=== PATIENT | female | born 1995 | race Caucasian/White ===

== ENCOUNTER 2016-12-25 23:02 | Emergency (ER) | payer OTHER ==
[2016-12-25 23:25] LABS: #Eosinphils 0.1 thou/uL (0.0-0.7); #Lymphocytes 1.3 thou/uL (1.20-3.40); #Monocytes 0.6 thou/uL (0.11-0.59); #Neutrophils 6.2 thou/uL (1.40-6.50); %Basophils 0.6 % (0.0-1.0); %Eosinophils 0.8 % (0.0-10.0); %Lymphocytes 15.8 % (28.0-48.0); %Monocytes 7.3 % (0.0-4.0); Hematocrit 41.1 % (36.0-47.0); Mean Platelet Volume 7.7 fL (7.4-10.4); Red Blood Cell (RBC) Count 4.73 mill/uL (4.00-5.20); White Blood Cell (WBC) Count 8.2 thou/uL (4.8-10.8)
[2016-12-25 23:41] LABS: ALT (SGPT) 101 U/L (8-55); AST (SGOT) 129 U/L (5-34); Alkaline Phosphatase 59 U/L (40-150); Anion Gap 11 mmol/L (10-20); BUN (Urea Nitrogen) 12 mg/dL (7.0-18.7); Bilirubin, Total 1.1 mg/dL (0.2-1.2); Calc. Creatinine Clearance 0 mL/min (70-130); Calcium 9.1 mg/dL (7.8-10.44); Carbon Dioxide 26 mmol/L (22-29); Chloride 105 mmol/L (98-107); Estimated GFR-MDRD 89; Globulin 2.7 g/dL (2.4-3.5); Protein, Total 6.5 g/dL (6.0-8.3)
[2016-12-25 23:46] LABS: Troponin I Less than 0.010 ng/mL (< 0.028)
--- NOTE | 2016-12-25 23:47 | RAD ---
PORTABLE CHEST: 12/25/16 HISTORY: Chest pain and shortness of breath. Heart size and mediastinum are within normal limits. The lungs are clear of infiltrates. No bony fin dings. IMPRESSION: No active intrathoracic disease. POS: [facility]
[2016-12-26] MEDS ORDERED: Acetaminophen 325 MG TAB ONE (01:57)
== END 2016-12-26 02:58 | disposition home or self-care (01) ==
LOC: ERS 23:02
DX: R11.2 Nausea with vomiting, unspecified (principal); M54.5 Low back pain; M54.6 Pain in thoracic spine
CPT/HCPCS: 36415; 71010; 80053; 82553; 83690; 84484; 85025; 85379; 93005

== ENCOUNTER 2016-12-27 01:03 | Observation (INO) | payer OTHER ==
[2016-12-27 02:46] LABS: #Eosinphils 0.1 thou/uL (0.0-0.7); #Lymphocytes 1.4 thou/uL (1.20-3.40); #Monocytes 0.5 thou/uL (0.11-0.59); #Neutrophils 4.1 thou/uL (1.40-6.50); %Basophils 0.4 % (0.0-1.0); %Eosinophils 1.4 % (0.0-10.0); %Lymphocytes 22.8 % (28.0-48.0); %Monocytes 8.7 % (0.0-4.0); Hematocrit 41.2 % (36.0-47.0); Mean Platelet Volume 7.6 fL (7.4-10.4); Red Blood Cell (RBC) Count 4.71 mill/uL (4.00-5.20); White Blood Cell (WBC) Count 6.2 thou/uL (4.8-10.8)
[2016-12-27 03:05] LABS: ALT (SGPT) 293 U/L (8-55); AST (SGOT) 261 U/L (5-34); Alkaline Phosphatase 94 U/L (40-150); Anion Gap 11 mmol/L (10-20); BUN (Urea Nitrogen) 11 mg/dL (7.0-18.7); Bilirubin, Total 2.2 mg/dL (0.2-1.2); Calc. Creatinine Clearance 0 mL/min (70-130); Calcium 9.5 mg/dL (7.8-10.44); Carbon Dioxide 26 mmol/L (22-29); Chloride 108 mmol/L (98-107); Estimated GFR-MDRD Greater than 90; Globulin 3.1 g/dL (2.4-3.5); Protein, Total 7.1 g/dL (6.0-8.3)
[2016-12-27 05:56] VITALS: BMI 29.0
[2016-12-27] MEDS ORDERED: Ondansetron HCl/PF 4 MG/2 ML Vial IVP PRN (06:09)
[2016-12-27] MEDS ORDERED: Ondansetron ODT 4 MG TAB SL PRN ×2 (06:09→18:31)
[2016-12-27] MEDS ORDERED: Morphine 2 MG/ML SYRINGE SLOW IVP PRN ×2 (06:09→18:31)
[2016-12-27] MEDS: Lactated Ringer's 1,000 ML IV SCH ×3 (07:45→18:40)
[2016-12-27 08:44] LABS: #Basophils 0.1 thou/uL (0.0-0.2); #Eosinphils 0.1 thou/uL (0.0-0.7); #Monocytes 0.5 thou/uL (0.11-0.59); %Eosinophils 1.2 % (0.0-10.0); %Monocytes 9.7 % (0.0-4.0); Hematocrit 42.7 % (36.0-47.0); Mean Platelet Volume 8.1 fL (7.4-10.4); Red Blood Cell (RBC) Count 4.86 mill/uL (4.00-5.20); White Blood Cell (WBC) Count 5.6 thou/uL (4.8-10.8)
[2016-12-27 08:57] LABS: ALT (SGPT) 358 U/L (8-55); AST (SGOT) 368 U/L (5-34); Alkaline Phosphatase 109 U/L (40-150); Anion Gap 14 mmol/L (10-20); BUN (Urea Nitrogen) 9 mg/dL (7.0-18.7); Bilirubin, Total 2.4 mg/dL (0.2-1.2); Calc. Creatinine Clearance 162 mL/min (70-130); Calcium 9.3 mg/dL (7.8-10.44); Carbon Dioxide 25 mmol/L (22-29); Chloride 104 mmol/L (98-107); Estimated GFR-MDRD Greater than 90; Globulin 3.3 g/dL (2.4-3.5); Lipase 24 U/L (8-78); Protein, Total 7.3 g/dL (6.0-8.3)
[2016-12-27] MEDS ORDERED: CEFAZOLIN/Water 2 GM/20 ML SYRINGE ONE (09:01)
--- NOTE | 2016-12-27 09:25 | ULT ---
PRELIMINARY REPORT/[facility]/EMERGENCY AFTER HOURS PROCEDURE: EXAM: US Abdomen Limited, Right Upper Quadrant EXAM DATE/TIME: Exam ordered 12/27/2016 2:55 AM CLINICAL HISTORY: 21 years old, female; Pain; Other: Ruq TECHNIQUE: Real-time ultrasound of the right upper quadrant with image documentation. COMPARISON: No relevant prior studies available. FINDINGS: Liver: Unremarkable. No mass. No intrahepatic bile duct dilation. Gallbladder: Cholelithiasis. Gallbladder is distended. Gallbladder wall is at upper limits of normal in thickness at 3 mm. Sonographic Rojas sign reported as "slightly positive." Common bile duct: Common bile duct is dilated at 1 cm in caliber. No stones. Pancreas: Unremarkable as visualized. Right kidney: Unremarkable. No stones. No solid mass. No hydronephrosis. IMPRESSION: 1. Cholelithiasis. Gallbladder is distended with wall thickness at the upper limits of normal at 3 m m, and "slightly positive" sonographic Rojas's are suspicious for but not definitely diagnostic of acute cholecystitis. 2. Common bile duct is dilated at 1 cm. Distal CBD obstruction not excluded. Consider CT abdomen/pel vis with intravenous contrast. Thank you for allowing us to participate in the care of your patient. Dictated and Authenticated by: Jordan Marvin MD 12/27/2016 3:30 AM Central Time ([place] \\T\\ Eric) FINAL REPORT EMERGENT AFTER HOURS STUDY ULTRASOUND ABDOMEN LIMITED: (RIGHT UPPER QUADRANT) HISTORY: A 21-year-old female with right upper quadrant abdominal pain. FINDINGS: Gallbladder: Wall thickness at upper limits of normal, 3 mm. Several tiny mobile gallstones, a few millimeters in size each. Mildly distended lumen. Common duct: Dilated to 10 mm. Liver: Diffusely heterogeneous echotexture, suggestive of possible hepatocellular disease. Pancreas: Nonspecific sonographic appearance. Right kidney: No hydronephrosis. Parenchyma thin, atypical for age 21 years. No major disagreement with preliminary report by [facility]. IMPRESSION: 1. Dilated common duct to 10 mm caliber: Evidence for common bile duct obstruction, such as that d ue to occult choledocholithiasis. 2. Cholelithiasis. 3. Heterogeneous hepatic echotexture, atypical for stated age of 21 years. This is suggestive of p ossible hepatocellular disease. Recommend correlation with liver enzymes. 4. The right renal parenchyma appears thin, which is also atypical for age [age] years old. Recommend correlation with urinalysis and glomerular filtration rate. ITALIA Dubon POS: [facility]
[2016-12-27] MEDS ORDERED: Lidocaine 2% w/Epinephrine 1:200K 20 ML VIAL ONE (10:22)
[2016-12-27] MEDS ORDERED: Bupivacaine PF 0.5% 30 ML VIAL ONE (10:22)
[2016-12-27] MEDS ORDERED: Iothalamate Meglumine 60% 50 ML VIAL FS ONE ×2 (10:22→13:00)
[2016-12-27] MEDS ORDERED: Fentanyl 250 MCG/5 ML VIAL ONE (12:21)
[2016-12-27] MEDS ORDERED: Midazolam HCl 2 mg/2 ml Vial ONE (12:35)
[2016-12-27] MEDS ORDERED: Propofol 200 MG/20 ML VIAL ONE (13:24)
[2016-12-27] MEDS ORDERED: Lidocaine 1% PF 5 ML VIAL ONE (13:24)
--- NOTE | 2016-12-27 13:39 | CON ---
DATE OF CONSULTATION: 12/27/2016 GASTROENTEROLOGY CONSULTATION NOTE CHIEF COMPLAINT: Abdominal pain. HISTORY OF PRESENT ILLNESS: Ms. Osorio is a 21-year-old woman who delivered a baby 4 weeks ago who presented to the emergency room with abdominal pain starting the day before yesterday. She has rig ht upper quadrant, sharp to aching pain that radiates through to her right back associated with naus ea and vomiting. She came to the emergency room on 12/26/2016 and her pain resolved and she was dis charged home. She had more back pain at that time with nausea and vomiting. She came back yesterda y to the emergency room and an ultrasound was performed which showed cholelithiasis. Her common oh e duct was noted to be dilated to 1 cm. She was also noted to have elevated liver tests. She was a dmitted to Dr. Sebastian and GI was consulted to evaluate for choledocholithiasis. Her pain actually resolved around 1:30 this morning; however, her liver tests increased. She has had no fever or chil ls. Her white count has been normal. PAST MEDICAL HISTORY: Otherwise, negative. She delivered a healthy baby 4 weeks ago. PAST SURGICAL HISTORY: Negative. FAMILY HISTORY: Negative for GI malignancy. Her grandmother had breast cancer. SOCIAL HISTORY: No alcohol or drugs. She smokes 1-2 cigarettes a day. ALLERGIES: No known drug allergies. MEDICATIONS AT HOME: None. REVIEW OF SYSTEMS: Negative x10 systems review except as stated in the history of present illness. PHYSICAL EXAMINATION: VITAL SIGNS: Temperature 98.8, pulse 88, and blood pressure 120/84. GENERAL: She is in no acute distress, alert and oriented x3. HEENT: Eyes have no scleral icterus. Oropharynx is clear without lesions. NECK: No cervical or supraclavicular lymphadenopathy. LUNGS: Clear to auscultation bilaterally. HEART: Regular rate and rhythm. ABDOMEN: Has mild tenderness in the right upper quadrant without guarding. EXTREMITIES: No lower extremity edema. NEUROLOGIC: Cranial nerves are grossly intact. LABORATORY DATA: White blood cell count 5.6, hemoglobin 13.2, and platelets 244. Creatinine 0.79, bilirubin is 2.4, AST 368, ALT 358, alkaline phosphatase 109, albumin 4.0, and lipase 24. IMPRESSION: Choledocholithiasis. Her liver tests have increased; however, pain is improved. Her b ile duct is dilated and she has stones in the gallbladder by ultrasound. Risks and benefits of endo scopic retrograde cholangiopancreatography were discussed with the patient in detail, this includes post-endoscopic retrograde cholangiopancreatography and bleeding. PLAN: ERCP today. Thus will follow laparoscopic cholecystectomy.
[2016-12-27] MEDS ORDERED: Indomethacin 50 MG SUPP ONE (15:45)
[2016-12-27] MEDS ORDERED: Ondansetron HCl/PF 4 MG/2 ML Vial ONE (16:36)
[2016-12-27] MEDS ORDERED: Glycopyrrolate 0.2 MG/ML 5 ML SYRINGE ONE (16:36)
--- NOTE | 2016-12-27 17:07 | RAD ---
CHOLANGIOGRAM IN SURGERY: History: Cholelithiasis. FINDINGS/IMPRESSION: Two spot fluoroscopic intraoperative images during a cholangiogram demonstrate opacification of the common duct, cystic duct, and branches without filling defects. Contrast was not seen in the distal common bile duct, pancreatic duct, or second portion of the duodenum. POS: [facility]
[2016-12-27] MEDS ORDERED: Promethazine HCl 25 MG/ML VIAL SLOW IVP PRN (17:17)
[2016-12-27] MEDS ORDERED: Meperidine HCl/PF 25 MG/ML VIAL SLOW IVP PRN (17:17)
[2016-12-27] MEDS ORDERED: Morphine Sulfate 2 MG/ML SYRINGE SLOW IVP PRN (17:17)
[2016-12-27] MEDS ORDERED: HYDROmorphone 2 MG/ML VIAL SLOW IVP PRN (17:17)
[2016-12-27] MEDS ORDERED: Fentanyl 100 MCG/2 ML VIAL ONE (17:18)
[2016-12-27] MEDS ORDERED: Promethazine HCl 25 MG/ML VIAL ONE (17:22)
[2016-12-27] MEDS ORDERED: HYDROcodone/Acetaminophen 7.5/325 mg Tablet PO PRN (18:33)
[2016-12-27] MEDS ORDERED: CEFAZOLIN/Water 2 GM/20 ML SYRINGE SLOW IVP SCH (18:45)
--- NOTE | 2016-12-27 23:09 | OP ---
DATE OF PROCEDURE: 12/27/2016 PROCEDURE: Endoscopic retrograde cholangiopancreatography with sphincterotomy. PREOPERATIVE DIAGNOSIS: Choledocholithiasis. OPERATIVE NOTE: Informed consent was obtained from the patient. She was sedated with general anest hesia. She underwent laparoscopic cholecystectomy. Intraoperative cholangiogram showed a dilated b ile duct that did not drain. This procedure was performed in the same anesthesia as the cholecystec jere. The patient was placed in the prone position. The side-viewing endoscope was advanced easily to the second portion of the duodenum. The ampulla was identified and there was a small periampull nick diverticulum present. The common bile duct was cannulated easily with a sphincterotome loaded w ith a jag wire. Cholangiogram was performed, which showed a dilated common bile duct and mildly dil ated extrahepatic ducts. No focal filling defect was identified. A large sphincterotomy was perfor med. A 15 mm balloon was then used to sweep the bile duct. The balloon had to be deflated very sli ghtly between 12 and 15 mm to pass through the sphincterotomy; however, it did pass through easily. The duct was swept clear and occlusion cholangiogram confirmed the duct to be clear. No stone was identified. IMPRESSION: 1. Dilated common bile duct and extrahepatic ducts. No focal filling defect was seen. 2. Large sphincterotomy performed. Balloon sweep of the bile duct was done and occlusion cholangio gram confirmed the duct to be clear. Air was suctioned from the stomach and the patient tolerated t he procedure well without immediate complications. Indomethacin 100 mg was given rectally immediate ly prior to the ERCP. RECOMMENDATIONS: Follow trend of the liver function test tomorrow. If she is doing well without co mplication, she should be able to discharge home tomorrow.
[2016-12-27] MEDS: Ondansetron HCl/PF 4 MG/2 ML Vial IVP PRN (23:42)
[2016-12-27] MEDS: HYDROcodone/Acetaminophen 7.5/325 mg Tablet PO PRN (23:42)
[2016-12-28] MEDS: Lactated Ringer's 1,000 ML IV SCH ×2 (04:24→15:29)
[2016-12-28 06:45] LABS: #Eosinphils 0.1 thou/uL (0.0-0.7); #Monocytes 0.7 thou/uL (0.11-0.59); #Neutrophils 7.8 thou/uL (1.40-6.50); %Basophils 0.4 % (0.0-1.0); %Eosinophils 0.6 % (0.0-10.0); %Lymphocytes 19.1 % (28.0-48.0); %Monocytes 6.7 % (0.0-4.0); Hematocrit 40.9 % (36.0-47.0); Red Blood Cell (RBC) Count 4.65 mill/uL (4.00-5.20); White Blood Cell (WBC) Count 10.6 thou/uL (4.8-10.8)
[2016-12-28 07:01] LABS: ALT (SGPT) 249 U/L (8-55); AST (SGOT) 108 U/L (5-34); Alkaline Phosphatase 106 U/L (40-150); Anion Gap 14 mmol/L (10-20); BUN (Urea Nitrogen) 10 mg/dL (7.0-18.7); Bilirubin, Total 0.9 mg/dL (0.2-1.2); Calc. Creatinine Clearance 162 mL/min (70-130); Calcium 8.7 mg/dL (7.8-10.44); Carbon Dioxide 23 mmol/L (22-29); Chloride 103 mmol/L (98-107); Estimated GFR-MDRD Greater than 90; Globulin 2.8 g/dL (2.4-3.5); Protein, Total 6.4 g/dL (6.0-8.3)
--- NOTE | 2016-12-28 08:55 | RAD ---
ERCP: HISTORY: Recent cholecystectomy. FINDINGS/IMPRESSION: Four spot fluoroscopic intraoperative images from an ERCP demonstrate opacification of the common bi le duct, hepatic ducts, and some of the branches. No persistent filling defects are seen. The patien t is post cholecystectomy. There is some contrast in the cystic duct remnant and the second portion of the duodenum. POS: [facility]
[2016-12-28] MEDS: HYDROcodone/Acetaminophen 7.5/325 mg Tablet PO PRN ×2 (10:47→17:16)
[2016-12-28] MEDS: Ondansetron HCl/PF 4 MG/2 ML Vial IVP PRN ×2 (10:47→17:16)
--- NOTE | 2016-12-28 13:04 | PRG ---
DATE OF SERVICE: 12/28/2016 SUBJECTIVE: Ms. Osorio still has had abdominal pain. Her pain is different now. She has more of tightness across epigastric region. This is not as severe as when she came in, but she is still req uiring pain medication. She vomited once this morning, but otherwise is tolerating clear liquids. She is ambulatory. PHYSICAL EXAMINATION: VITAL SIGNS: Temperature 98.5, pulse 80, and blood pressure 155/84. GENERAL: She is in no acute distress, alert and oriented x3. LUNGS: Clear to auscultation bilaterally. HEART: Regular rate and rhythm without murmur. ABDOMEN: Soft, mild tenderness in the epigastric region without guarding. Bowel sounds are present . EXTREMITIES: No lower extremity edema. LABORATORY DATA: White blood cell count 10.6, hemoglobin 13.7, platelets 233, creatinine 0.79, bili tai 0.9, AST 108, ALT 249, and alkaline phosphatase 106. IMPRESSION: 1. Choledocholithiasis/cholecystitis, status post cholecystectomy and endoscopic retrograde cholang iopancreatography with sphincterotomy. There is no ongoing retained stone at the time of the endosc opic retrograde cholangiopancreatography. The ducts were significantly dilated and large sphinctero jere was performed and the duct was swept and confirmed to be clear. 2. Epigastric pain. She might have a mild post-endoscopic retrograde cholangiopancreatography panc reatitis now. RECOMMENDATIONS: 1. Continue a clear liquid diet. 2. Check lipase. 3. She can likely advance her diet and discharge home tomorrow if she does have pancreatitis, it ap pears to be very mild.
[2016-12-29] MEDS: Lactated Ringer's 1,000 ML IV SCH ×2 (02:32→15:23)
[2016-12-29] MEDS: HYDROcodone/Acetaminophen 7.5/325 mg Tablet PO PRN (06:14)
[2016-12-29] MEDS: Ondansetron HCl/PF 4 MG/2 ML Vial IVP PRN (06:15)
[2016-12-29 07:05] LABS: #Eosinphils 0.2 thou/uL (0.0-0.7); #Lymphocytes 2.2 thou/uL (1.20-3.40); #Monocytes 0.9 thou/uL (0.11-0.59); #Neutrophils 7.2 thou/uL (1.40-6.50); %Basophils 0.3 % (0.0-1.0); %Eosinophils 1.7 % (0.0-10.0); %Lymphocytes 21.3 % (28.0-48.0); %Monocytes 8.4 % (0.0-4.0); Hematocrit 43.3 % (36.0-47.0); Mean Platelet Volume 7.6 fL (7.4-10.4); Red Blood Cell (RBC) Count 5.03 mill/uL (4.00-5.20); White Blood Cell (WBC) Count 10.5 thou/uL (4.8-10.8)
[2016-12-29 07:26] LABS: ALT (SGPT) 134 U/L (8-55); AST (SGOT) 31 U/L (5-34); Alkaline Phosphatase 86 U/L (40-150); Anion Gap 13 mmol/L (10-20); BUN (Urea Nitrogen) 9 mg/dL (7.0-18.7); Bilirubin, Total 0.9 mg/dL (0.2-1.2); Calc. Creatinine Clearance 175 mL/min (70-130); Calcium 8.5 mg/dL (7.8-10.44); Carbon Dioxide 21 mmol/L (22-29); Chloride 103 mmol/L (98-107); Estimated GFR-MDRD Greater than 90; Lipase 77 U/L (8-78); Protein, Total 6.3 g/dL (6.0-8.3)
--- NOTE | 2016-12-29 09:05 | PRG ---
DATE OF SERVICE: 12/29/2016 SUBJECTIVE: Ms. Osorio is feeling better today. Her abdominal pain has diminished. She is not na useated. She has not tried eating today. Her labs are still pending. Her vital signs are normal. ASSESSMENT: Cholecystitis and choledocholithiasis status post laparoscopic cholecystectomy and endo scopic retrograde cholangiopancreatography. She had a mild post-endoscopic retrograde cholangiopanc reatography pancreatitis, which appears to be resolving. Her nurses to call me with her labs when t hey have return and if these are normal we will likely advance her diet. I anticipate that she will be discharged home today.
[2016-12-29 16:06] VITALS: BP 129/85; TEMP 97.9
--- NOTE | 2016-12-30 16:22 | PDOC.OP ---
Operative Note - Operative Note Operative Note: PROCEDURE: Laparoscopic cholecystectomy with intraoperative cholangiogram SURGEON: Aiden Sebastian M.D. DATE OF PROCEDURE: 12/27/2016 PREOPERATIVE DIAGNOSIS: Cholelithiasis and cholecystitis, possible choledocholithiasis: POSTOPERATIVE DIAGNOSIS: Cholelithiasis and cholecystitis, choledocholithiasis HISTORY: Patient who is 4 weeks who presented to the hospital with biliary colic symptoms. She was found to have a common bile duct that was dilated and elevated LFTs. After discussion with gastroenterology, the recommendation was made to proceed with laparoscopic cholecystectomy and intraoperative cholangiogram, with immediate postoperative ERCP under the same anesthesia if the cholangiogram is abnormal. FINDINGS: Distended thin walled gallbladder with extensive omental adhesions. 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 PROCEDURE IN DETAIL: After informed consent was obtained and appropriate preoperative antibiotics were administered, the patient was taken to the operating room and placed in the supine position and general endotracheal anesthesia was administered. The stomach was decompressed with an OG tube and the abdomen was prepped and draped in standard sterile fashion. Local anesthesia was infused to the skin and subcutaneous tissues at the umbilical level. A transverse skin incision was made. The fascia was elevated and a Veress needle was placed into the abdominal cavity without difficulty. Opening pressure was less than 5 and carbon dioxide gas easily insufflated to an intra- abdominal pressure of 15, which the patient tolerated well. The Veress needle was withdrawn and a Hindman port advanced under direct vision. The abdominal cavity was carefully examined. There was no evidence of Veress needle or of trocar injury. Local anesthesia was infused to the skin and subcutaneous tissues at the epigastric, right upper quadrant, and right lateral abdominal sites and trocars were placed under direct vision of the laparoscope. The fundus of the gallbladder was grasped and retracted superiorly. The patient had extensive omental adhesions covering the entire anterior surface of her gallbladder which appeared very chronic. These were stripped inferiorly using electrocautery as necessary until the infundibulum was identified. The infundibulum was grasped and retracted laterally. The serosa was stripped inferiorly at the level of the neck of the gallbladder exposing the cystic duct which was traced clearly to their insertion in the gallbladder. This was dissected free circumferentially and the cystic duct was clipped at the level of the neck of the gallbladder. An incision was made in the cystic duct inferior to the clip and the cystic duct was palpated with no stones palpable. Clear bile was seen to flow from the cystic duct incision. A cholangiogram catheter was introduced and placed into the cystic duct and secured with a clip. A cholangiogram was obtained which showed an adequate length of cystic duct. There was normal filling of the proximal common bile duct with no flow of contrast into the duodenum. There was normal retrograde flow into the common hepatic duct beyond the level of the bifurcation without filling defects. Glucagon was administered and the cholangiogram repeated, with continued obstruction of the distal common bile duct seen. Dr. Burrell of gastroenterology was contacted and plans made for an immediate postoperative ERCP. The cholangiogram catheter was removed and the cystic duct clipped below the incision in the cystic duct. The cystic duct was divided between these clips and the previously placed clip. The cystic artery was noted to be unusually large and was not inserting directly into the gallbladder. This was dissected free from the gallbladder wall and ran adjacent to the gallbladder wall was felt to possibly represent an aberrant right hepatic artery. A branch coming off of this artery heading toward the gallbladder was identified. This gave off 2 small branches which were clipped and divided. The remainder of the artery was dissected free of the gallbladder and spared. The gallbladder was then dissected free of the gallbladder bed using hook electrocautery. Prior to complete removal of the gallbladder from the gallbladder bed, the area of the cystic duct and artery stumps was examined. The clips were in good position completely across these structures and there was no bleeding and no leakage of bile. The gallbladder was then placed into an EndoCatch bag and drawn out through the epigastric incision. The epigastric trocar was replaced and the operative site easily irrigated to clear. There was no significant bleeding or spillage of bile. The epigastric trocar was removed and the fascia closed under direct laparoscopic vision with a 0 Vicryl suture on a GraNee needle in a figure -of-eight manner with excellent technical result. The right upper quadrant and right lateral abdominal trocars were removed and hemostasis verified. Carbon dioxide gas was allowed to desufflate through the umbilical trocar which was then removed. The skin incisions were closed with 4-0 subcuticular Monocryl sutures and Dermabond dressings were placed. The patient was taken to the endoscopy suite in good condition. There were no complications. ESTIMATED BLOOD LOSS: Minimal. SPECIMEN : Gallbladder and contents.
== END 2016-12-29 16:05 | disposition home or self-care (01) ==
LOC: ERS 01:03 → SURG A 05:33
PROVIDERS: ADMIT Surgery; ATTEND Surgery
PROC: 0FT44ZZ Resection of Gallbladder, Percutaneous Endoscopic Approach (ICD-10-PCS; principal; 2016-12-27)
PROC: BF00YZZ Plain Radiography of Bile Ducts using Other Contrast (ICD-10-PCS; 2016-12-27)
PROC: 0F798ZZ Dilation of Common Bile Duct, Via Natural or Artificial Opening Endoscopic (ICD-10-PCS; 2016-12-27)
DX: K80.10 Calculus of gallbladder with chronic cholecystitis without obstruction (principal); F17.210 Nicotine dependence, cigarettes, uncomplicated; R94.5 Abnormal results of liver function studies; K85.90 Acute pancreatitis without necrosis or infection, unspecified
CPT/HCPCS: 36415; 47532; 74330; 76705; 80053; 83690; 84703; 85025; 88304; 96361; 96374; 96376; G0378; J1610; J2001; J2250; J2405; J2550; J2704; J3010; Q9961; S0020

== ENCOUNTER → 2019-10-12 | Outpatient (CLI) | payer OTHER ==
[2019-10-13 12:24] LABS: SARS-CoV-2 MS2 Positive; SARS-CoV-2 N Gene Negative; SARS-CoV-2 S Gene Negative; SARS-CoV-2 by NAA Not Detected (NotDetected); SARS-CoV-2 orf1ab Negative
== END ==
LOC: LABBT 08:00
PROVIDERS: ATTEND Obstetrics & Gynecology
DX: Z36.89 Encounter for other specified antenatal screening (principal)
CPT/HCPCS: 87635; U0003

== ENCOUNTER 2020-05-24 23:52 | Emergency (ER) | payer OTHER ==
[2020-05-25 04:45] LABS: SARS-CoV-2 PCR by NAA Not Detected (NotDetected)
== END 2020-05-25 00:51 | disposition home or self-care (01) ==
LOC: ERS 23:52
DX: R06.00 Dyspnea, unspecified (principal); R07.89 Other chest pain; F17.210 Nicotine dependence, cigarettes, uncomplicated; Z20.822 Contact with and (suspected) exposure to COVID-19
CPT/HCPCS: 71045; 87635; 93005; U0003; U0005

== ENCOUNTER 2021-07-20 16:20 | Outpatient (CLI) | payer OTHER ==
[2021-07-21 00:53] LABS: SARS-CoV-2 PCR by NAA Not Detected (NotDetected)
== END 2021-07-20 16:21 | disposition home or self-care (01) ==
LOC: LABBT 16:20
PROVIDERS: ATTEND Urology
DX: N20.1 Calculus of ureter (principal); Z20.822 Contact with and (suspected) exposure to COVID-19
CPT/HCPCS: U0003; U0005

== ENCOUNTER 2021-07-21 09:48 | Day surgery (SDC) | payer OTHER ==
[2021-07-20 13:54] VITALS: BMI 40.1
[2021-07-21] MEDS ORDERED: Iopamidol 30 ML ONE (10:44)
[2021-07-21] MEDS ORDERED: Midazolam HCl 2 mg/2 ml Vial ONE (10:47)
[2021-07-21] MEDS ORDERED: Fentanyl 100 MCG/2 ML VIAL ONE (10:47)
[2021-07-21] MEDS ORDERED: Dexamethasone 20 MG/5 ML VIAL ONE (10:53)
[2021-07-21] MEDS ORDERED: Ondansetron PF 4 MG/2 ML Vial ONE (10:53)
[2021-07-21] MEDS ORDERED: ePHEDrine 50 MG/ML VIAL ONE (10:53)
[2021-07-21] MEDS ORDERED: PROPOFOL 200 MG/20 ML VIAL ONE (10:53)
[2021-07-21] MEDS ORDERED: Ketorolac Tromethamine 30 MG/ML VIAL ONE (10:53)
[2021-07-21] MEDS ORDERED: Lidocaine 1% PF 5 ML VIAL ONE (10:53)
[2021-07-21] MEDS ORDERED: Levofloxacin 500 mg/D5W 100 ml Premix Bag ONE (10:55)
[2021-07-21] MEDS ORDERED: Phenazopyridine HCl 100 MG TAB ONE (11:46)
[2021-07-21] MEDS ORDERED: Oxybutynin 5 MG TAB ONE (11:46)
== END 2021-07-21 12:20 | disposition home or self-care (01) ==
LOC: SDC 09:48
PROVIDERS: ATTEND Urology
PROC: 0TC68ZZ Extirpation of Matter from Right Ureter, Via Natural or Artificial Opening Endoscopic (ICD-10-PCS; principal; 2021-07-21)
PROC: 0T768DZ Dilation of Right Ureter with Intraluminal Device, Via Natural or Artificial Opening Endoscopic (ICD-10-PCS; principal; 2021-07-21)
DX: N13.2 Hydronephrosis with renal and ureteral calculous obstruction (principal); N81.10 Cystocele, unspecified; N39.3 Stress incontinence (female) (male); F17.210 Nicotine dependence, cigarettes, uncomplicated; Z79.899 Other long term (current) drug therapy
CPT/HCPCS: 74420; 82365; 88300; C2617; J1100; J1885; J1956; J2250; J2405; J2704; J3010; J3490; Q9967

== ENCOUNTER 2021-09-08 14:16 | Outpatient (CLI) | payer OTHER | END 2021-09-08 14:17 | disposition home or self-care (01) | LOC: BICULT 14:16 | PROVIDERS: ATTEND Urology | DX: N20.1 Calculus of ureter (principal) | CPT/HCPCS: 76770 ==